=== PATIENT | female | born 1945 | race Caucasian/White ===

== ENCOUNTER 2018-04-03 13:00 | Inpatient (IN) ==
[2018-04-03] MEDS ORDERED: EPINEPHrine 1 MG/ML VIAL ET ONE (13:04)
[2018-04-03] MEDS ORDERED: EPINEPHrine 1 MG/10 ML SYRINGE IV STA ×6 (13:06→14:22)
[2018-04-03] MEDS ORDERED: SODIUM BICARBONATE 50 MEQ/50 ML VIAL IV STA ×3 (13:09→13:51)
[2018-04-03] MEDS ORDERED: SODIUM CHLORIDE 0.9% 1,000 ML IV STA (13:24)
[2018-04-03] MEDS ORDERED: EPINEPHrine 1 MG/10 ML SYRINGE ONE ×2 (13:27→14:20)
[2018-04-03] MEDS ORDERED: NOREPINEPHRINE 4 MG/4 ML VIAL IV ONE ×2 (13:31→19:27)
[2018-04-03 13:32] LABS: Basophils # 0.1 10*3/uL (0.0-0.2); Eosinophils # 0.2 10*3/uL (0.0-0.87); Eosinophils % 2.1 % (0.00-10.9); Hematocrit 42.6 VOL% (35.7-47.0); Hemoglobin 13.3 GM/DL (12.0-16.0); Immature Granulocytes % 4.9 %; Lymphocytes # 4.9 10*3/uL (1.4-4.0); Lymphocytes % 59.7 % (21.3-54.2); Mean Corpuscular HGB Conc 31.2 GM/DL (32-36); Mean Corpuscular Hemoglobin 30 PG (27-34); Mean Corpuscular Volume 96.4 FL (87-102); Mean Platelet Volume 12.2 FL (9.6-12.0); Monocytes # 0.6 10*3/uL (0.11-0.8); Monocytes % 6.7 % (1.7-12.7); NRBC # 0.07 10*3/uL; Neutrophils # 2.1 10*3/uL (1.4-7.4); Neutrophils % 25.6 % (38.7-73.9); Platelet Count 175 T/CUMM (130-400); Red Blood Count 4.42 MC/CUMM (3.8-5.5); Red Cell Distribution Width 13.8 % (9.3-17.3); White Blood Count 8.2 T/CUMM (4-12)
[2018-04-03] MEDS: NOREPINEPHRINE 8 MG in SODIUM CHLORIDE 0.9% 242 ML IV PRN ×2 (13:35→20:11)
[2018-04-03 13:43] LABS: ABG Base Excess -16.7 MMOL/L (-2.5-2.5); ABG HCO3 12.1 MMOL/L (20-26); ABG Oxygen Saturation 97.3 % (95-100); ABG PCO2 60.3 MM HG (35-48); ABG TCO2 14.8 MMOL/L (23-27)
[2018-04-03 13:46] LABS: ABG PH 7.018 (7.35-7.45)
[2018-04-03 13:50] LABS: Alanine Aminotransferase 74 U/L (13-56); Albumin 3.2 G/DL (3.4-5.0); Alkaline Phosphatase 83 U/L (45-117); Aspartate Amino Transferase 57 U/L (0-37); Bilirubin,Total < 0.39 MG/DL (0.2-1.0); Blood Urea Nitrogen 24 MG/DL (7-18); Calcium 9.3 MG/DL (8.5-10.1); Glucose 461 MG/DL (74-106); Sodium 143 MMOL/L (136-145); Total Protein 6.8 G/DL (6.4-8.3)
[2018-04-03] MEDS ORDERED: SODIUM BICARBONATE 50 MEQ/50 ML SYRINGE IV ONE ×2 (13:50→14:00)
[2018-04-03 14:06] LABS: Calcium 9.3 MG/DL (8.5-10.1)
[2018-04-03] MEDS: SODIUM BICARB INJ 100 MEQ in SODIUM CHLORIDE 0.45% 1,000 ML IV SCH (14:13)
[2018-04-03] MEDS ORDERED: DOPamine 800 MG/250 ML PREMIX IV PRN (14:22)
[2018-04-03 14:56] LABS: Eosinophils 3 % (0-10); Lymphocytes 55 % (20-55); Nucleated Red Blood Cells 2 (0-5); Segmented Neutrophils 34 % (50-85); Total Cells Counted 100
[2018-04-03 14:57] LABS: Platelet Estimate Normal
[2018-04-03 15:00] LABS: Apearance,Urine CLOUDY (Clear); Bacteria,Urine Occasional /HPF (Few); Bilirubin,Urine Negative (Negative); Blood, Urine Negative (Negative); Glucose,Urine (UA) Negative (Negative); Ketones,Urine Negative (Negative); Mucus,Urine Occasional /LPF (Occasional); Nitrite,Urine Negative (Negative); Protein,Urine >=500 MG/DL; RBC,Urine 12 /HPF (0-4); Squamous Epithelial Cell,Urine Occasional /HPF (0-10); Urine Color Yellow (Yellow); Urine Specific Gravity 1.017 (1.001-1.035); Urine Urobilinogen < 2.0 EU/DL (0.2-1.0); WBC,Urine 16 /HPF (0-6)
[2018-04-03] MEDS ORDERED: ALBUTEROL 2.5 MG/3 ML NEB RESP TX PRN (15:25)
[2018-04-03] MEDS ORDERED: PANTOPRAZOLE 40 MG VIAL IV SCH (15:30)
[2018-04-03] MEDS ORDERED: SODIUM CHLORIDE 0.9% 1,000 ML IV SCH (15:30)
[2018-04-03 15:54] LABS: ABG Base Excess -7.2 MMOL/L (-2.5-2.5); ABG HCO3 18.5 MMOL/L (20-26); ABG Oxygen Saturation 89.7 % (95-100); ABG PCO2 58.1 MM HG (35-48); ABG PO2 71.8 MM HG (80-95)
[2018-04-03 15:58] LABS: ABG PH 7.194 (7.35-7.45)
[2018-04-03] MEDS ORDERED: INSULIN REGULAR 100 UNIT/ML ONE (16:16)
[2018-04-03 16:18] LABS: Risk Ratio 2.79; Thyroid Stimulating Hormone 4.28 uIU/ml (0.358-3.74); VLDL CHOLESTEROL 48.4 MG/DL
[2018-04-03] MEDS ORDERED: INSULIN REGULAR 100 UNIT/ML SUBCUT ONE (16:18)
[2018-04-03] MEDS ORDERED: GLUCAGON 1 MG VIAL IM PRN (17:14)
[2018-04-03] MEDS ORDERED: DEXTROSE 50% 25 GM/50 ML VIAL IV PRN (17:14)
[2018-04-03] MEDS: PHENYLEPHRINE DRIP 40 MG/250 ML PREMIX IV PRN (17:15)
[2018-04-03 17:31] LABS: INR 1.2; PT Patient Result 12.7 SECS
[2018-04-03 17:57] LABS: Lactic Acid 7.1 MMOL/L (0.4-2.0)
[2018-04-03] MEDS: INSULIN REGULAR 100 UNIT/ML SUBCUT SCH (19:01)
[2018-04-03] MEDS ORDERED: AMIODARONE INJ 150 MG in DEXTROSE 5% 100 ML IV ONE (19:59)
[2018-04-03] MEDS ORDERED: AMIODARONE INJ 450 MG in DEXTROSE 5% 241 ML IV SCH (20:30)
[2018-04-03] MEDS: PANTOPRAZOLE 40 MG VIAL IV SCH (22:07)
[2018-04-04 00:11] LABS: Hematocrit 47.4 VOL% (35.7-47.0)
[2018-04-04] MEDS: SODIUM BICARB INJ 100 MEQ in SODIUM CHLORIDE 0.45% 1,000 ML IV SCH ×3 (00:44→17:22)
[2018-04-04] MEDS: INSULIN REGULAR 100 UNIT/ML SUBCUT SCH ×6 (00:47→17:30)
[2018-04-04] MEDS: AMIODARONE INJ 450 MG in DEXTROSE 5% 241 ML IV SCH ×2 (03:00→17:30)
[2018-04-04 03:52] LABS: ABG Base Excess -4.2 MMOL/L (-2.5-2.5); ABG Oxygen Saturation 99.6 % (95-100); ABG PCO2 25.4 MM HG (35-48); ABG PH 7.454 (7.35-7.45); ABG TCO2 14.8 MMOL/L (23-27); Allen Test Positive; Pt O2 Delivery Device Ventilator
[2018-04-04 04:01] LABS: Basophils # 0.1 10*3/uL (0.0-0.2); Basophils % 0.3 % (0.0-0.8); Eosinophils # 0.1 10*3/uL (0.0-0.87); Eosinophils % 0.4 % (0.00-10.9); Hematocrit 45.4 VOL% (35.7-47.0); Hemoglobin 15.3 GM/DL (12.0-16.0); Immature Granulocytes % 0.9 %; Immature Granulocytes Absolute 0.14 #; Lymphocytes # 2.8 10*3/uL (1.4-4.0); Lymphocytes % 18.2 % (21.3-54.2); Mean Corpuscular HGB Conc 33.7 GM/DL (32-36); Mean Corpuscular Hemoglobin 30 PG (27-34); Mean Corpuscular Volume 88.2 FL (87-102); Mean Platelet Volume 11.9 FL (9.6-12.0); Monocytes # 1.5 10*3/uL (0.11-0.8); Monocytes % 9.5 % (1.7-12.7); NRBC # 0.04 10*3/uL; Neutrophils % 70.7 % (38.7-73.9); Platelet Count 272 T/CUMM (130-400); Red Blood Count 5.15 MC/CUMM (3.8-5.5); Red Cell Distribution Width 14.1 % (9.3-17.3); White Blood Count 15.5 T/CUMM (4-12)
[2018-04-04 04:40] LABS: Albumin 3.2 G/DL (3.4-5.0); Bilirubin,Total 0.6 MG/DL (0.2-1.0); Calcium 8.2 MG/DL (8.5-10.1); Osmolality,Calculated 308.6 MOS/KG (273-304); Potassium 3.2 MMOL/L (3.5-5.1); Total Protein 5.9 G/DL (6.4-8.3)
[2018-04-04 04:52] LABS: Band Neutrophils 6 % (0-10); Lymphocytes 20 % (20-55); Segmented Neutrophils 67 % (50-85)
[2018-04-04 04:53] LABS: Platelet Estimate Normal; Total Cells Counted 100
[2018-04-04] MEDS: PANTOPRAZOLE 40 MG VIAL IV SCH ×2 (10:38→21:00)
[2018-04-04] MEDS: DEXAMETHASONE 10 MG/1 ML VIAL IV SCH ×2 (12:45→17:30)
[2018-04-04] MEDS: NOREPINEPHRINE 16 MG in SODIUM CHLORIDE 0.9% 234 ML IV PRN ×2 (13:05)
[2018-04-04] MEDS: PHENYLEPHRINE DRIP 40 MG/250 ML PREMIX IV PRN (14:24)
[2018-04-04] MEDS ORDERED: AMIODARONE INJ 150 MG in DEXTROSE 5% 100 ML IV ONE ×2 (15:11→19:20)
[2018-04-04] MEDS ORDERED: MAGNESIUM SULF RIDER 4 GM in PREMIX 1 EACH IV PRN (18:32)
[2018-04-04] MEDS ORDERED: MAGNESIUM SULF RIDER 4 GM in PREMIX 1 EACH IV ONE (18:32)
[2018-04-04] MEDS ORDERED: MAGNESIUM SULF RIDER 2 GM in PREMIX 1 EACH IV PRN (18:32)
[2018-04-04] MEDS ORDERED: AMIODARONE 150 MG/3 ML VIAL ONE (18:59)
[2018-04-04] MEDS ORDERED: MORPHINE 4 MG/1 ML VIAL IV PRN (19:11)
[2018-04-04 22:14] VITALS: BP 124/55
== END 2018-04-04 19:22 | disposition expired | DRG 309 ==
LOC: N.ED 13:00 → N.EDINP 14:36 → SUATTDRO 14:36 → N.CC 15:07
PROVIDERS: ADMIT Internal Medicine; ATTEND Family Medicine